=== PATIENT | female | born 1935 | race Hispanic/Latino ===

== ENCOUNTER 2018-10-03 10:21 | Outpatient (CLI) | payer MEDICARE ==
--- NOTE | 2018-10-03 10:47 | XRay Report ---
XRAY CHEST TWO VIEWS: 10/03/18 10:21:00 CLINICAL: Cough. COMPARISON: None FINDINGS: Normal heart and pulmonary vasculature.The aortic tortuosity and calcification. A 5 mm left lower lobe calcified granuloma and a 3 mm right middle lobe calcified granuloma. 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 No fracture lines are identified. IMPRESSION: Old granulomatous disease and no acute cardiopulmonary process.
== END 2018-10-03 10:22 | disposition home or self-care (01) ==
LOC: SPVIMAG 10:21
PROVIDERS: ATTEND Internal Medicine
DX: L92.9 Granulomatous disorder of the skin and subcutaneous tissue, unspecified (principal)
CPT/HCPCS: 71046

== ENCOUNTER 2020-12-31 13:16 | Emergency (ER) | payer MEDICARE ==
--- NOTE | 2020-12-31 13:30 | Emergency Department Report ---
ED General Adult HPI - General Stated complaint: HX OF TIA Time Seen by Provider: 12/31/20 13:27 - History of Present Illness Initial comments: Patient presents with bilateral arm pain. Right greater than left has been noted. Patient states that she has been having right arm pain and left arm pain for the last 2 weeks. It is worse at night and worse when she is supine. When she gets up and moves in the middle of the night, the pain goes away. 2 weeks ago, she had been seen by cardiology because of episodes of chest pain. Apparently, they thought that her anticoagulant was not working. They changed her from Xarelto to Eliquis. She states that that is when her symptoms began. There is no history of trauma. She has no neck pain or back pain. She states that the pain seems to be in the right shoulder and radiate down to the right arm. This is the same of the left although the left side is not as intense. There is no abdominal pain. She has no chest pain at this time. She has no pain in the lower extremities. Her family was concerned that this could be heart problems or even stroke related and so they brought her here. Symptoms are bilateral. - Related Data Previous Rx's Medication Instructions Recorded Last Taken Type Lidocaine [Lidoderm] 1 each TP DAILY #30 adh..patch 12/31/20 Unknown Rx Allergies Allergy/AdvReac Type Severity Reaction Status Date / Time Penicillins AdvReac Unknown Verified 12/31/20 13:32 ED Review of Systems ROS: Stated complaint: HX OF TIA Other details as noted in HPI Comment: All other systems reviewed and negative Constitutional: denies: fever Eyes: denies: vision change ENT: denies: throat pain Respiratory: denies: cough Cardiovascular: denies: chest pain, palpitations Endocrine: denies: unexplained weight loss Gastrointestinal: denies: abdominal pain Genitourinary: denies: hematuria Musculoskeletal: as per HPI. denies: back pain Skin: denies: rash Neurological: denies: headache, numbness, paresthesias Hematological/Lymphatic: denies: easy bruising ED Past Medical Hx - Medications Home Medications: Home Medications Medication Instructions Recorded Confirmed Last Taken Type Lidocaine [Lidoderm] 1 each TP DAILY #30 adh..patch 12/31/20 Unknown Rx ED Physical Exam - General General appearance: alert, in no apparent distress - Head Head exam: Present: atraumatic, normocephalic, normal inspection - Eye Eye exam: Present: normal appearance, PERRL, EOMI - ENT ENT exam: Present: normal exam, normal orophraynx, mucous membranes moist - Neck Neck exam: Present: full ROM. Absent: tenderness, meningismus - Respiratory Respiratory exam: Present: normal lung sounds bilaterally. Absent: respiratory distress - Cardiovascular Cardiovascular Exam: Present: regular rate, normal rhythm - GI/Abdominal GI/Abdominal exam: Present: soft. Absent: distended, tenderness - Extremities Exam Extremities exam: Present: normal inspection, full ROM. Absent: tenderness (There is no tenderness with palpation over the right arm or left arm. There is no problems with range of motion at the right shoulder or elbow or wrist. Patient has brisk capillary refill and good sensation in the deltoid area and arm area. Pulses are equal and symmetric distally.) - Back Exam Back exam: Present: normal inspection. Absent: CVA tenderness (R), CVA te nderness (L) - Neurological Exam Neurological exam: Present: alert, oriented X3. Absent: motor sensory deficit - Psychiatric Psychiatric exam: Present: normal affect, normal mood - Skin Skin exam: Present: warm, dry ED Course Vital Signs 12/31/20 13:36 Temperature 98.4 F Pulse Rate 87 Respiratory 20 Rate Blood Pressure 158/81 [Left] O2 Sat by Pulse 97 Oximetry - Reevaluation(s) Reevaluation #1: 12/31/20 13:29 Patient had been seen at 1310 hrs. EKG was noted. IV and labs were ordered. Reevaluation #2: 12/31/20 15:36 Work-up is not been complete. Etiology the patient's symptoms is not known. Clinically, the certainly does not seem to be cardiac in nature. She is describing more radicular type symptoms. She states that she has no neck problems. It is unlikely this represents a epidural hematoma given the fact that this has been present for 2 weeks. There is no muscle weakness or myelopathy. I certainly not concerned for need for emergent MRI. She has no fevers or chills. Patient states that her symptoms are better with exertion. It is unlikely this would represent CAD or ACS in any form. Patient was treated symptomatically and referred to PCP for consideration of MRI. ED Medical Decision Making - Lab Data Result diagrams: 12/31/20 14:55 12/31/20 14:55 - EKG Data -: EKG Interpreted by Me EKG shows normal: sinus rhythm, intervals, QRS complexes Rate: normal - EKG Data When compared to previous EKG there are: changes noted (Patient has T wave inversions in V1 through V3. There is T wave flattening in 3 and aVF.) Interpretation: nonspecific ST-T wave jovani - Radiology Data Radiology results: image reviewed - Medical Decision Making Patient presents with bilateral arm pain that seems to be improved with exertion. She was concerned for possible stroke or heart disease. Her daughter was also verbalizing the same concern. At this time, there is no evidence of stroke. She certainly does not seem to have symptoms that would be unilateral or consistent with stroke. There is no trauma to suggest acute neck injury. Patient does not have exertional chest pain or any other chest pain currently there is suggest ACS. Critical care attestation.: If time is entered above; I have spent that time in minutes in the direct care of this critically ill patient, excluding procedure time. ED Disposition Clinical Impression: Arm pain Qualifiers: Laterality: right Qualified Code(s): M79.601 - Pain in right arm Disposition: 01 HOME / SELF CARE / HOMELESS Is pt being admited?: No Does the pt Need Aspirin: No Condition: Stable Instructions: Pain Without a Known Cause Additional Instructions: Try ice or heat to your neck. Limit lifting. Follow-up with your regular doctor for consideration of MRI to evaluate your arm pain for possible disc problems. Continue to follow-up with your medical sales representative for your episodic chest pain. Return for problems or concerns. Prescriptions: Lidocaine [Lidoderm] 1 each TP DAILY #30 adh..patch
[2020-12-31 13:39] VITALS: BP 158/81
--- NOTE | 2020-12-31 14:05 | XRay Report ---
CHEST 2 VIEWS INDICATION: bilateral arm pain. COMPARISON: 10/03/2018. FINDINGS: Support devices: None. Heart: Within normal limits. Lungs/Pleura: No acute air space or interstitial disease. No significant pleural effusion. Prior gr anulomatous exposure unchanged. IMPRESSION: No acute findings. Signer Name: Feng Lopez MD Signed: 12/31/2020 2:00 PM Workstation Name: [id number]
[2020-12-31 15:03] LABS: Hematocrit 41.5 % (30.3-42.9); Hemoglobin 13.9 gm/dl (10.1-14.3); Mean Corpuscular HGB Conc 34 % (30-34); Mean Corpuscular Volume 91 fl (79-97); Platelet Count 235 K/mm3 (140-440); Red Blood Count 4.55 M/mm3 (3.65-5.03); Red Cell Distribution Width 13.5 % (13.2-15.2)
[2020-12-31 15:24] LABS: INR 1.03 (0.87-1.13)
[2020-12-31 15:25] LABS: BUN/Creatinine Ratio 18; Blood Urea Nitrogen 16 mg/dL (7-17); Calcium 9.6 mg/dL (8.4-10.2); Hemolysis Index 3
--- NOTE | 2021-01-02 10:12 | Electrocardiograph Report ---
[facility] Test Date: 2020-12-31 Test Time: 13:12:09 Pat Name: RANULFO PATTON Department: Room: Gender: F Well Shooter: NURSE : 1935 Requested By: DIAMOND LOMELI Order Number: [id number] Reading MD: Gabo Flores Measurements Intervals [place] Rate: 82 P: 62 NE: 185 QRS: 59 QRSD: 103 T: 4 QT: 381 QTc: 435 Interpretive Statements Sinus rhythm Paired ventricular premature complexes Probable left atrial enlargement No previous ECG available for comparison Electronically Signed On 01-02-2021 10:12:15 EDT by Gabo Flores
== END 2020-12-31 15:38 | disposition home or self-care (01) ==
LOC: ED 13:16
DX: M79.601 Pain in right arm (principal); M79.602 Pain in left arm; Z88.0 Allergy status to penicillin
CPT/HCPCS: 36415; 71046; 80048; 84484; 85027; 85610; 93005; 99284